=== PATIENT | female | born 1990 | race Caucasian/White ===

== ENCOUNTER 2020-04-20 08:12 | Observation (INO) | payer BC ==
--- NOTE | 2020-04-20 08:38 | ER Document Report ---
ED General - General Chief Complaint: Abdominal Pain Stated Complaint: ABDOMINAL PAIN Time Seen by Provider: 04/20/20 08:22 Notes: 29 old female morbidly obese presents with abdominal pain bilateral lower quadrant worse with movement and laying on her stomach, 24 hours now with anorexia and mild nausea. No vomiting. She feels that something is "pulling" when she stands. No bulges or hernias noted. Never had surgery. - Related Data Allergies/Adverse Reactions: codeine [Codeine] Allergy (Verified 04/20/20 08:19) naproxen [Naproxen] Allergy (Verified 04/20/20 08:19) Past Medical History - General Information source: Patient - Social History Smoking Status: Never Smoker Family History: None - Immunizations Immunizations up to date: Yes Hx Diphtheria, Pertussis, Tetanus Vaccination: Yes Review of Systems - Review of Systems Notes: REVIEW OF SYSTEMS GEN: Denies fever, chills, weight loss ENT: Denies sore throat, nasal discharge, ear pain EYES: Denies blurry vision, eye pain, discharge CV: Denies chest pain, palpitations, edema RESP: Denies cough, shortness of breath, wheezing GI: Pain and nausea with anorexia MSK: Denies joint pain/swelling, edema, SKIN: Denies rash, skin lesions LYMPH: Denies swollen glands/lymph nodes NEURO: Denies headache, focal weakness or numbness, dizziness PSYCH: Denies depression, suicidal or homicidal ideation PHYSICAL EXAMINATION General: No acute distress, well-nourished Head: Atraumatic, normocephalic ENT: Mouth normal, oropharynx moist, no exudates or tonsillar enlargement Eyes: Conjunctiva normal, pupils equal, lids normal Neck: No JVD, supple, no guarding CVS: Normal rate, regular rhythm, no murmurs Resp: No resp distress, equal and normal breath sounds bilaterally GI: The obese with right lower quadrant and suprapubic tenderness and guarding, no rebound no rebound tenderness Ext: No deformities, no edema, normal range of motion in upper and lower ext Back: No CVA or midline TTP Skin: No rash, warm Lymphatic: No lymphadeopathy noted Neuro: Awake, alert. Face symmetric. GCS 15. Physical Exam - Vital signs Vitals: Temp Pulse Resp BP Pulse Ox 98.6 F 86 18 145/89 H 97 04/20/20 08:17 04/20/20 08:17 04/20/20 08:17 04/20/20 08:17 04/20/20 08:17 Course - Re-evaluation Re-evalutation: 04/20/20 10:11 Right lower quadrant pain. Given meds. White count elevated CT shows unruptured appendicitis. Discussed with Tosha. Requested Zosyn. Ordered. Reassessed: Pain better. Tosha seen patient will admit for appendectomy. - Vital Signs Vital signs: Temp Pulse Resp BP Pulse Ox 98.6 F 86 18 145/89 H 97 04/20/20 08:17 04/20/20 08:17 04/20/20 08:17 04/20/20 08:17 04/20/20 08:17 - Laboratory Result Diagrams: 04/20/20 08:44 04/20/20 08:44 Laboratory results interpreted by me: 04/20/20 08:44 WBC 16.2 H Absolute Neuts (auto) 12.4 H - Diagnostic Test Radiology reviewed: Image reviewed, Reports reviewed Discharge - Discharge Clinical Impression: Appendicitis Qualifiers: Appendicitis type: acute appendicitis Acute appendicitis type: with localized peritonitis Appendicitis gangrene presence: without gangrene Appendicitis perforation presence: without perforation Appendicitis abscess presence: without abscess Qualified Code(s): K35.30 - Acute appendicitis with localized peritonitis, without perforation or gangrene Condition: Fair Disposition: ADMITTED OBSERVATION Admitting Provider: Surgicalist Unit Admitted: OR
[2020-04-20] MEDS ORDERED: ONDANSETRON HCL INJ/PF 4 MG/2 ML SDV IV ONE (08:39)
[2020-04-20] MEDS ORDERED: NORMAL SALINE 1000 ML 1,000 ML IV ONE (08:39)
[2020-04-20] MEDS ORDERED: HYDROMORPHONE HCL INJ/PF 2 MG/ML AMPULE IV ONE (08:39)
[2020-04-20] MEDS ORDERED: NEOSTIGMINE METHYLSULFATE 10 MG/10 ML VIAL ONE (08:48)
[2020-04-20] MEDS ORDERED: GLYCOPYRROLATE 1 MG/5 ML VIAL ONE (08:48)
[2020-04-20] MEDS ORDERED: ONDANSETRON HCL INJ/PF 4 MG/2 ML SDV ONE (08:48)
[2020-04-20] MEDS ORDERED: LIDOCAINE 2% INJ-PF (20 MG/ML) 2 ML AMPUL ONE (08:48)
[2020-04-20] MEDS ORDERED: PHENYLEPHRINE HCL INJ/PF 10 MG/1 ML SDV ONE (08:48)
[2020-04-20 09:08] LABS: ABSOLUTE BASOPHILS # (AUTO) 0.1 10^3/uL (0.0-0.2); ABSOLUTE EOSINOPHILS # (AUTO) 0.3 10^3/uL (0.0-0.6); ABSOLUTE LYMPHOCYTES (AUTO) 2.3 10^3/uL (0.5-4.7); ABSOLUTE MONOCYTES (AUTO) 1.1 10^3/uL (0.1-1.4); ABSOLUTE NEUT (AUTO) 12.4 10^3/uL (1.7-8.2); BASOPHILS % (AUTO) 0.3 % (0-2); EOSINOPHILS % (AUTO) 1.9 % (0-6); HEMATOCRIT 41.8 % (36.0-47.0); HEMOGLOBIN 14.1 g/dL (12.0-15.5); LYMPHOCYTES % (AUTO) 14.5 % (13-45); MEAN CORPUSCULAR HEMOGLOBIN 30.7 pg (27.0-33.4); MEAN CORPUSCULAR HGB CONC 33.8 g/dL (32.0-36.0); MEAN CORPUSCULAR VOLUME 91 fl (80-97); MONOCYTES % (AUTO) 6.8 % (3-13); PLATELET COUNT 275 10^3/uL (150-450); RED BLOOD COUNT 4.61 10^6/uL (3.72-5.28); RED CELL DISTRIBUTION WIDTH 13.6 % (11.5-14.0); SEGMENTED NEUTROPHILS % (AUTO) 76.5 % (42-78); TOTAL CELLS COUNTED % (AUTO) 100 %; WHITE BLOOD COUNT 16.2 10^3/uL (4.0-10.5)
[2020-04-20] MEDS ORDERED: PIPERACILLIN/TAZOBACTAM 3.375 GM VIAL IV ONE (09:30)
[2020-04-20 09:31] LABS: ALBUMIN 4.3 g/dL (3.5-5.0); ALKALINE PHOSPHATASE 84 U/L (38-126); ANION GAP 10 (5-19); ASPARTATE AMINO TRANSFERASE 22 U/L (14-36); BILIRUBIN,DIRECT 0.3 mg/dL (0.0-0.4); BILIRUBIN,TOTAL 0.8 mg/dL (0.2-1.3); BLOOD UREA NITROGEN 9 mg/dL (7-20); CALCIUM 9.5 mg/dL (8.4-10.2); CARBON DIOXIDE 25 mmol/L (22-30); CHLORIDE 104 mmol/L (98-107); GLUCOSE 110 mg/dL (75-110); POTASSIUM 4.3 mmol/L (3.6-5.0); TOTAL PROTEIN 7.5 g/dL (6.3-8.2)
--- NOTE | 2020-04-20 09:38 | RADIOLOGY REPORT (SQ) ---
EXAM DESCRIPTION: CT ABD/PELVIS WITH IV ONLY IMAGES COMPLETED DATE/TIME: 04/20/2020 9:21 am REASON FOR STUDY: appy COMPARISON: None. TECHNIQUE: CT scan of the abdomen and pelvis performed using helical scanning technique with dynamic intravenous contrast injection. No oral contrast. Images reviewed with lung, soft tissue, and bone windows. Reconstructed coronal and sagittal MPR images reviewed. Delayed images for evaluation of the urinary system also acquired. All images stored on PACS. All CT scanners at this facility use dose modulation, iterative reconstruction, and/or weight based d osing when appropriate to reduce radiation dose to as low as reasonably achievable (ALARA). [facility]: Dose Right [facility]: CareDose [facility]: Dose Right [facility]: Teradose 4D [facility]: YapStone CONTRAST TYPE AND DOSE: contrast/concentration: Isovue 350.00 mmol/ml; Total Contrast Delivered: 100 .0 ml; Total Saline Delivered: 68.0 ml RENAL FUNCTION: None required. The patient is less than 50 years old. RADIATION DOSE: CT Rad equipment meets quality standard of care and radiation dose reduction techniq ues were employed. CTDIvol: NaN - NaN mGy. DLP: 0 mGy-cm.. LIMITATIONS: None. FINDINGS: LOWER CHEST: Small hiatal hernia. LIVER: Normal size. No masses. No dilated ducts. SPLEEN: Normal size. No focal lesions. PANCREAS: No masses. No significant calcifications. No adjacent inflammation or peripancreatic fluid collections. Pancreatic duct not dilated. GALLBLADDER: No identified stones by CT criteria. No inflammatory changes to suggest cholecystitis. ADRENAL GLANDS: No significant masses or asymmetry. RIGHT KIDNEY AND URETER: No solid masses. No significant calcifications. No hydronephrosis or hyd roureter. LEFT KIDNEY AND URETER: No solid masses. No significant calcifications. No hydronephrosis or hydr oureter. AORTA AND VESSELS: No aneurysm. No dissection. Renal arteries, SMA, celiac without stenosis. RETROPERITONEUM: No retroperitoneal adenopathy, hemorrhage or masses. BOWEL AND PERITONEAL CAVITY: No masses or inflammatory changes. No free fluid or peritoneal masses. APPENDIX: Inflammatory changes associated with mildly dilated appendix. No abscess. PELVIS: No mass. No free fluid. Normal bladder. ABDOMINAL WALL: No masses. No hernias. BONES: No significant or acute findings. OTHER: No other significant finding. IMPRESSION: Acute appendicitis. TECHNICAL DOCUMENTATION: JOB ID: [id number] Quality ID # [id number]: Final reports with documentation of one or more dose reduction techniques (e.g., Au tomated exposure control, adjustment of the mA and/or kV according to patient size, use of iterative reconstruction technique) 2010 [employer]- All Rights Reserved Reading location - IP/workstation name: [email or web address]
[2020-04-20 10:16] LABS: APPEARANCE,URINE CLEAR; BILIRUBIN,URINE NEGATIVE (NEGATIVE); COLOR,URINE YELLOW; GLUCOSE, URINE NEGATIVE (NEGATIVE); KETONES,URINE NEGATIVE (NEGATIVE); LEUKOCYTE ESTERASE,URINE NEGATIVE (NEGATIVE); NITRITE,URINE NEGATIVE (NEGATIVE); PROTEIN,URINE NEGATIVE (NEGATIVE); UROBILINOGEN,URINE NEGATIVE mg/dL (<2.0)
[2020-04-20] MEDS ORDERED: DEXTROSE 40% GEL 15 GM TUBE PO PRN ×2 (11:52)
[2020-04-20] MEDS ORDERED: DEXTROSE 50%-WATER 25 GM/50 ML DISP.SYRIN IV PRN ×2 (11:52)
[2020-04-20] MEDS ORDERED: ONDANSETRON HCL INJ/PF 4 MG/2 ML SDV IV PRN (11:52)
[2020-04-20] MEDS ORDERED: DEXTROSE 5%-LACTATED RINGERS 1,000 ML IV PRN (11:52)
[2020-04-20] MEDS ORDERED: GLUCAGON,HUMAN RECOMB 1 MG INJ SUBCUT PRN (11:52)
--- NOTE | 2020-04-20 11:52 | PDOC H&P ---
History of Present Illness Admission Date/PCP: 04/20/20 09:33 Patient complains of: Abdominal pain History of Present Illness: KIRK HALL is a 29 year old female with a 1 day history of abdominal pain. It is located in her right lower quadrant. She denies any nausea or vomiting. The pain became severe, and she presented to the emergency department for e valuation. Her pain is sharp and stabbing, but does not radiate. Movement and palpation make her pain worse. Nothing makes it better. Currently she rates her pain as 5 out of 10. She denies fevers, chills, melena, hematochezia, hematemesis, headache, chest pain, shortness of breath, cough, blurry vision, dizziness, orthostasis. Past Surgical History Past Surgical History: Reports: Other - [place] tooth extraction Social History Information Source: Patient Smoking Status: Current Some Day Smoker Frequency of Alcohol Use: None Hx Recreational Drug Use: No Hx Prescription Drug Abuse: No Family History Family History: None Parental Family History Reviewed: Yes Children Family History Reviewed: Yes Sibling(s) Family History Reviewed.: Yes Medication/Allergy Home Medications: Aspirin/Acetaminophen/Caffeine [Excedrin Extra Strength Caplet] 1 tab PO DAILYP PRN 04/20/20 Allergies/Adverse Reactions: codeine [Codeine] Allergy (Verified 04/20/20 08:19) naproxen [Naproxen] Allergy (Verified 04/20/20 08:19) Review of Systems Constitutional: ABSENT: anorexia, chills, fatigue, fever(s), headache(s), night sweats, weakness Eyes: ABSENT: visual disturbances Ears: ABSENT: hearing changes Nose, Mouth, and Throat: ABSENT: sore throat Cardiovascular: ABSENT: chest pain Respiratory: ABSENT: cough, dyspnea Gastrointestinal: PRESENT: abdominal pain. ABSENT: bloating, constipation, hematemesis, hematochezia, melena, nausea, vomiting Genitourinary: ABSENT: dysuria Musculoskeletal: ABSENT: back pain Integumentary: ABSENT: pruritus, rash Neurological: ABSENT: confusion, convulsions, dizziness Psychiatric: PRESENT: anxiety. ABSENT: depression Endocrine: ABSENT: cold intolerance, heat intolerance Physical Exam Vital Signs: Temp Pulse Resp BP Pulse Ox 98.6 F 86 18 145/89 H 97 04/20/20 08:17 04/20/20 08:17 04/20/20 08:17 04/20/20 08:17 04/20/20 08:17 Intake & Output 04/19/20 04/20/20 04/21/20 06:59 06:59 06:59 Intake Total 1100 Balance 1100 Weight 113.6 kg General appearance: PRESENT: no acute distress, cooperative, morbidly obese Head exam: PRESENT: atraumatic, normocephalic Eye exam: PRESENT: EOMI, PERRLA. ABSENT: scleral icterus Mouth exam: PRESENT: moist, neck supple Neck exam: ABSENT: meningismus, tenderness, thyromegaly, tracheal deviation Respiratory exam: PRESENT: unlabored. ABSENT: tachypnea, wheezes Cardiovascular exam: ABSENT: tachycardia Vascular exam: PRESENT: normal capillary refill GI/Abdominal exam: PRESENT: soft, tenderness - Right lower quadrant. ABSENT: rebound, rigid Rectal exam: PRESENT: deferred Extremities exam: ABSENT: clubbing Musculoskeletal exam: ABSENT: deformity Neurological exam: PRESENT: alert, awake, oriented to person, oriented to place, oriented to time, oriented to situation, CN II-XII grossly intact Psychiatric exam: PRESENT: anxious. ABSENT: depressed Skin exam: ABSENT: abrasion, cyanosis, erythema, jaundice Results Laboratory Results: 04/20/20 08:44 04/20/20 08:44 04/20/20 04/20/20 04/20/20 08:44 08:44 10:00 WBC 16.2 H RBC 4.61 Hgb 14.1 Hct 41.8 MCV 91 MCH 30.7 MCHC 33.8 RDW 13.6 Plt Count 275 Seg Neutrophils % 76.5 Sodium 138.8 Potassium 4.3 Chloride 104 Carbon Dioxide 25 Anion Gap 10 BUN 9 Creatinine 0.69 Est GFR ( Amer) > 60 Glucose 110 Calcium 9.5 Total Bilirubin 0.8 AST 22 Alkaline Phosphatase 84 Total Protein 7.5 Albumin 4.3 Lipase 49.0 Urine Color YELLOW Urine Appearance CLEAR Urine pH 6.0 Ur Specific [place] 1.040 Urine Protein NEGATIVE Urine Glucose (UA) NEGATIVE Urine Ketones NEGATIVE Urine Blood MODERATE H Urine Nitrite NEGATIVE Ur Leukocyte Esterase NEGATIVE Urine WBC (Auto) 0 Urine RBC (Auto) 1 Impressions: Abdomen/Pelvis CT 04/20/20 08:39 IMPRESSION: Acute appendicitis. Assessment & Plan - Diagnosis (1) Appendicitis Qualifiers: Appendicitis type: acute appendicitis Acute appendicitis type: with localized peritonitis Appendicitis gangrene presence: without gangrene Appendicitis perforation presence: without perforation Appendicitis abscess presence: without abscess Qualified Code(s): K35.30 - Acute appendicitis with localized peritonitis, without perforation or gangrene Is this a current diagnosis for this admission?: Yes - Time Anticipated Discharge Disposition: Home, Self Care Anticipated Discharge Timeframe: within 48 hours - Plan Summary Plan Summary: This is a 29-year-old female with acute appendicitis, diagnosed on CT scan. I plan to take her to the operating room for laparoscopic versus open appendectomy. This has been discussed with the patient and her mother at length. The patient is in agreement with the treatment plan. Risks/benefits discussed, informed consent obtained, and all questions answered.
[2020-04-20] MEDS ORDERED: BUPIVACAINE HCL 0.25 % INJ/PF (2.5 MG/1 ML) 30 ML VIAL ONE (12:58)
[2020-04-20] MEDS: MORPHINE SULFATE 10 MG/ML INJ IV PRN ×2 (13:02→21:12)
[2020-04-20] MEDS ORDERED: MIDAZOLAM 2 MG/2 ML INJ ONE (13:07)
[2020-04-20] MEDS ORDERED: HYDROMORPHONE HCL INJ/PF 2 MG/ML AMPULE ONE (13:07)
[2020-04-20] MEDS ORDERED: FENTANYL CITRATE INJ/PF 100 MCG/2 ML AMPUL ONE ×2 (13:07→15:53)
[2020-04-20] MEDS ORDERED: PROPOFOL INJ 200 MG/20 ML VIAL IV ONE (13:08)
[2020-04-20] MEDS ORDERED: FENTANYL CITRATE INJ/PF 100 MCG/2 ML AMPUL IV PRN ×3 (14:51)
[2020-04-20] MEDS ORDERED: MEPERIDINE HCL/PF INJ 25 MG/1 ML DISP.SYRIN IV PRN (14:51)
[2020-04-20] MEDS ORDERED: PROMETHAZINE HCL INJ 25 MG/1 ML VIAL IV PRN ×2 (14:51)
[2020-04-20] MEDS ORDERED: DIPHENHYDRAMINE HCL 50 MG/ML VIAL IV PRN (14:51)
[2020-04-20] MEDS ORDERED: HYDROMORPHONE HCL INJ/PF 2 MG/ML AMPULE IV PRN (14:51)
--- NOTE | 2020-04-20 15:23 | Operative Report ---
Nonrecallable Operative Report DATE OF SURGERY: 04/20/20 PREOPERATIVE DIAGNOSIS: Acute appendicitis POSTOPERATIVE DIAGNOSIS: Acute nonperforated appendicitis OPERATION: Laparoscopic appendectomy SURGEON: HAO ADAME 1ST CASH APPLICATION CLERK: RUPAL ROSAS ANESTHESIA: GA TISSUE REMOVED OR ALTERED: Appendix COMPLICATIONS: None apparent ESTIMATED BLOOD LOSS: Minimal PROCEDURE: Drains/implants: None. Procedure in detail: After informed consent was obtained, the patient was brought into the operating room and laid in the supine position. The area of the abdomen was prepped and draped in a normal sterile fashion. A supraumbilical incision was created with a 15 blade scalpel. Dissection was carried through the subcutaneous tissues using sharp and blunt dissection. The cicatrix was identified, grasped with a Toribio clamp, and retracted upwards. The linea alba fascia was incised sharply, the abdomen was entered sharply. The balloon trocar was inserted, and pneumoperitoneum was achieved. A suprapubic 5 mm trocar was then placed under direct laparoscopic visualization. Another left lower quadrant 5 mm trocar was inserted into the abdomen in similar fashion. Atraumatic graspers were placed through the 5 mm ports. The appendix was identified. There was a dense inflammatory reaction surrounding the appendix, but it did not appear perforated. The appendix was freed from the surrounding tissues using blunt dissection and harmonic scalpel. The appendix was retracted anteriorly. The mesoappendix was taken down using the harmonic scalpel. The appendix was then ligated at its base using PDS Endoloops x2. The appendix was then amputated using the harmonic scalpel. The appendix was placed into an Endo Catch bag and pulled out through the umbilicus. The camera was reinserted. The abdomen was inspected. No other obvious abnormality could be identified. The right lower quadrant was found to be hemostatic. The 5 mm trochars were then removed under direct laparoscopic visualization. The supraumbilical trocar was removed, and pneumoperitoneum was relieved The supraumbilical fascia was closed using 0 Vicryl suture in [id number] fashion. The overlying skin was closed using 4-0 Vicryl Rapide suture in subcuticular fashion. Dressings were placed, and the procedure was concluded. All sponge, instrument, and needle counts were correct x2. Condition: Stable. Rupal Rosas PA-C was scrubbed and present the entirety of the procedure. She assisted with all portions of the procedure including placement of the trochars, manipulation of the appendix, removal of the appendix, closure of the fascia, and closure of the skin.
[2020-04-21] MEDS ORDERED: ACETAMINOPHEN 325 MG TABLET PO PRN (09:20)
--- NOTE | 2020-04-21 09:31 | PDOC PROGRESS REPORT ---
Subjective Progress Note for:: 04/21/20 Subjective:: Patient comfortable Reason For Visit: ACUTE APPENDICITIS Physical Exam Vital Signs: Temp Pulse Resp BP Pulse Ox 98.4 F 67 16 100/52 L 92 04/21/20 07:57 04/21/20 07:57 04/21/20 07:57 04/21/20 07:57 04/21/20 07:57 Intake & Output 04/20/20 04/21/20 04/22/20 06:59 06:59 06:59 Intake Total 1740 Output Total 5 Balance 1735 Weight 117.2 kg General appearance: PRESENT: no acute distress, obese Respiratory exam: PRESENT: clear to auscultation monico Cardiovascular exam: PRESENT: RRR GI/Abdominal exam: PRESENT: normal bowel sounds, other - Obese, not distended, not tender, incisions clean, dry, and intact Results Laboratory Results: 04/20/20 08:44 04/20/20 08:44 04/20/20 04/20/20 08:44 10:00 Sodium 138.8 Potassium 4.3 Chloride 104 Carbon Dioxide 25 Anion Gap 10 BUN 9 Creatinine 0.69 Est GFR ( Amer) > 60 Glucose 110 Calcium 9.5 Total Bilirubin 0.8 AST 22 Alkaline Phosphatase 84 Total Protein 7.5 Albumin 4.3 Lipase 49.0 Urine Color YELLOW Urine Appearance CLEAR Urine pH 6.0 Ur Specific [place] 1.040 Urine Protein NEGATIVE Urine Glucose (UA) NEGATIVE Urine Ketones NEGATIVE Urine Blood MODERATE H Urine Nitrite NEGATIVE Ur Leukocyte Esterase NEGATIVE Urine WBC (Auto) 0 Urine RBC (Auto) 1 Impressions: Abdomen/Pelvis CT 04/20/20 08:39 IMPRESSION: Acute appendicitis. Assessment & Plan - Diagnosis (1) Appendicitis Qualifiers: Appendicitis type: acute appendicitis Acute appendicitis type: with localized peritonitis Appendicitis gangrene presence: without gangrene Appendicitis perforation presence: without perforation Appendicitis abscess presence: without abscess Qualified Code(s): K35.30 - Acute appendicitis with localized peritonitis, without perforation or gangrene - Time Anticipated Discharge Disposition: Home, Self Care Anticipated Discharge Timeframe: Today - Plan Summary Plan Summary: Assessment: Postoperative day #1 following laparoscopic appendectomy for acute appendicitis Vital signs stable Abdomen soft, all incisions clean, dry, and intact Patient very p.o. well Plan: Check CBC this morning, if lower than admission CBC she can be discharged home today Follow-up in surgery office in 2 weeks Regular diet Activities as tolerated Return to work in 3 to 5 days after surgery Return to her primary care physician in 1 to 2 weeks Tylenol only for pain No wound care needed Shower only for 2 weeks, then the patient can tub bathe
[2020-04-21 10:04] LABS: ABSOLUTE BASOPHILS # (AUTO) 0.1 10^3/uL (0.0-0.2); ABSOLUTE EOSINOPHILS # (AUTO) 0.2 10^3/uL (0.0-0.6); ABSOLUTE LYMPHOCYTES (AUTO) 2.8 10^3/uL (0.5-4.7); ABSOLUTE MONOCYTES (AUTO) 0.9 10^3/uL (0.1-1.4); ABSOLUTE NEUT (AUTO) 9.9 10^3/uL (1.7-8.2); BASOPHILS % (AUTO) 0.4 % (0-2); EOSINOPHILS % (AUTO) 1.5 % (0-6); HEMOGLOBIN 12.6 g/dL (12.0-15.5); LYMPHOCYTES % (AUTO) 20.1 % (13-45); MEAN CORPUSCULAR HEMOGLOBIN 30.8 pg (27.0-33.4); MEAN CORPUSCULAR HGB CONC 34.1 g/dL (32.0-36.0); MEAN CORPUSCULAR VOLUME 90 fl (80-97); MONOCYTES % (AUTO) 6.8 % (3-13); PLATELET COUNT 274 10^3/uL (150-450); RED CELL DISTRIBUTION WIDTH 13.7 % (11.5-14.0); SEGMENTED NEUTROPHILS % (AUTO) 71.2 % (42-78); TOTAL CELLS COUNTED % (AUTO) 100 %; WHITE BLOOD COUNT 13.9 10^3/uL (4.0-10.5)
--- NOTE | 2020-04-21 10:50 | PDOC DISCHARGE SUMMARY ---
General - Admit/Disc Date/PCP Admission Date/Primary Care Provider: 04/20/20 09:33 Discharge Date: 04/21/20 - Discharge Diagnosis Final Diagnosis: Acute nonperforated appendicitis - Assessment Summary: This is a 29-year-old morbidly obese female who presented to the emergency room on April 20, 2020 complaining of right lower quadrant pain, CAT scan of the abdomen and pelvis was done revealing acute appendicitis, white blood cell count was 16,000. The patient underwent an uncomplicated laparoscopic appendectomy, postop patient did very well, on the following day the patient vital signs were stable, she was tolerating p.o. well, her abdomen was soft nondistended nontender, incisions were clean, dry, and intact; she was discharged the same day following CBC drawn on the same day (13.9). Follow-up in surgery office in 2 weeks Regular diet Activities as tolerated Return to work in 3 to 5 days after surgery Return to her primary care physician in 1 to 2 weeks Tylenol only for pain No wound care needed Shower only for 2 weeks, then the patient can tub bathe - Additional Information Resuscitation Status: Full Code Discharge Diet: Regular Discharge Activity: Activity As Tolerated, No tub bath - For 2 weeks, she can shower in the meantime Referrals: BECK CHAWLA MD [ACTIVE STAFF] - 05/01/20 11:00 am (Dr. Givens will be seeing the patient.) Home Medications: Acetaminophen [Tylenol 325 mg Tablet] 650 mg PO Q4HP PRN tablet 04/21/20 Additional Information: Follow-up in surgery office in 2 weeks Regular diet Activities as tolerated Return to work in 3 to 5 days after surgery Return to her primary care physician in 1 to 2 weeks Tylenol only for pain No wound care needed Shower only for 2 weeks, then the patient can tub bathe History of Present Illiness History of Present Illness: KIRK HALL is a 29 year old female Physical Exam Vital Signs: Temp Pulse Resp BP Pulse Ox 98.4 F 67 16 100/52 L 92 04/21/20 07:57 04/21/20 07:57 04/21/20 07:57 04/21/20 07:57 04/21/20 07:57 Intake & Output 04/20/20 04/21/20 04/22/20 06:59 06:59 06:59 Intake Total 1740 Output Total 5 Balance 1735 Weight 117.2 kg Results Laboratory Results: WBC 16.2 10^3/uL (4.0-10.5) H 04/20/20 08:44 RBC 4.61 10^6/uL (3.72-5.28) 04/20/20 08:44 Hgb 14.1 g/dL (12.0-15.5) 04/20/20 08:44 Hct 41.8 % (36.0-47.0) 04/20/20 08:44 MCV 91 fl (80-97) 04/20/20 08:44 MCH 30.7 pg (27.0-33.4) 04/20/20 08:44 MCHC 33.8 g/dL (32.0-36.0) 04/20/20 08:44 RDW 13.6 % (11.5-14.0) 04/20/20 08:44 Plt Count 275 10^3/uL (150-450) 04/20/20 08:44 Lymph % (Auto) 14.5 % (13-45) 04/20/20 08:44 [place] % (Auto) 6.8 % (3-13) 04/20/20 08:44 Eos % (Auto) 1.9 % (0-6) 04/20/20 08:44 Baso % (Auto) 0.3 % (0-2) 04/20/20 08:44 Absolute Neuts (auto) 12.4 10^3/uL (1.7-8.2) H 04/20/20 08:44 Absolute Lymphs (auto) 2.3 10^3/uL (0.5-4.7) 04/20/20 08:44 Absolute Monos (auto) 1.1 10^3/uL (0.1-1.4) 04/20/20 08:44 Absolute Eos (auto) 0.3 10^3/uL (0.0-0.6) 04/20/20 08:44 Absolute Basos (auto) 0.1 10^3/uL (0.0-0.2) 04/20/20 08:44 Seg Neutrophils % 76.5 % (42-78) 04/20/20 08:44 Sodium 138.8 mmol/L (137-145) 04/20/20 08:44 Potassium 4.3 mmol/L (3.6-5.0) 04/20/20 08:44 Chloride 104 mmol/L (98-107) 04/20/20 08:44 Carbon Dioxide 25 mmol/L (22-30) 04/20/20 08:44 Anion Gap 10 (5-19) 04/20/20 08:44 BUN 9 mg/dL (7-20) 04/20/20 08:44 Creatinine 0.69 mg/dL (0.52-1.25) 04/20/20 08:44 Est GFR ( Amer) > 60 (>60) 04/20/20 08:44 Est GFR (MDRD) Non-Af > 60 (>60) 04/20/20 08:44 Glucose 110 mg/dL (75-110) 04/20/20 08:44 Calcium 9.5 mg/dL (8.4-10.2) 04/20/20 08:44 Total Bilirubin 0.8 mg/dL (0.2-1.3) 04/20/20 08:44 Direct Bilirubin 0.3 mg/dL (0.0-0.4) 04/20/20 08:44 Neonat Total Bilirubin Not Reportable 04/20/20 08:44 Neonat Direct Bilirubin Not Reportable 04/20/20 08:44 Neonat Indirect Bili Not Reportable 04/20/20 08:44 AST 22 U/L (14-36) 04/20/20 08:44 ALT 13 U/L (<35) 04/20/20 08:44 Alkaline Phosphatase 84 U/L (38-126) 04/20/20 08:44 Total Protein 7.5 g/dL (6.3-8.2) 04/20/20 08:44 Albumin 4.3 g/dL (3.5-5.0) 04/20/20 08:44 Lipase 49.0 U/L (23-300) 04/20/20 08:44 Urine Color YELLOW 04/20/20 10:00 Urine Appearance CLEAR 04/20/20 10:00 Urine pH 6.0 (5.0-9.0) 04/20/20 10:00 Ur Specific [place] 1.040 04/20/20 10:00 Urine Protein NEGATIVE mg/dL (NEGATIVE) 04/20/20 10:00 Urine Glucose (UA) NEGATIVE mg/dL (NEGATIVE) 04/20/20 10:00 Urine Ketones NEGATIVE mg/dL (NEGATIVE) 04/20/20 10:00 Urine Blood MODERATE (NEGATIVE) H 04/20/20 10:00 Urine Nitrite NEGATIVE (NEGATIVE) 04/20/20 10:00 Urine Bilirubin NEGATIVE (NEGATIVE) 04/20/20 10:00 Urine Urobilinogen NEGATIVE mg/dL (<2.0) 04/20/20 10:00 Ur Leukocyte Esterase NEGATIVE (NEGATIVE) 04/20/20 10:00 Urine WBC (Auto) 0 /HPF 04/20/20 10:00 Urine RBC (Auto) 1 /HPF 04/20/20 10:00 Squamous Epi Cells Auto <1 /HPF 04/20/20 10:00 Urine Mucus (Auto) RARE /LPF 04/20/20 10:00 Urine Ascorbic Acid NEGATIVE (NEGATIVE) 04/20/20 10:00 Urine HCG, Qual NEGATIVE (NEGATIVE) 04/20/20 10:00 Impressions: Abdomen/Pelvis CT 04/20/20 08:39 IMPRESSION: Acute appendicitis.
[2020-04-21 11:37] VITALS: BP 108/66
== END 2020-04-21 12:29 | disposition home or self-care (01) ==
LOC: ER 08:12 → INTOOBSV 09:33 → EH 09:33 → 5 11:53
PROVIDERS: ATTEND Surgery
DX: K35.80 Unspecified acute appendicitis (principal); E66.01 Morbid (severe) obesity due to excess calories; F17.200 Nicotine dependence, unspecified, uncomplicated; F41.9 Anxiety disorder, unspecified
CPT/HCPCS: 44970; 99285; 96361; 96375; 96365; 36415 ×2; 83690; 85025 ×2; 81025; 80053; 81001; 88304 ×2; 74177; 99140; 00840; G0378 ×2; J2250; J3010; J2270; J2710; J1170 ×2; J2370; J2405; J7121; J7030; J2704; J2543; J3490 ×2; 840